=== PATIENT | female | born 1975 | race Caucasian/White ===

== ENCOUNTER 2019-04-26 11:17 | Emergency (ER) | payer BC, MEDICAID ==
--- NOTE | 2019-04-26 11:28 | EDM.PDOC ---
ED HPI GENERAL MEDICAL PROBLEM - General Chief Complaint: Lower Extremity Injury/Pain Stated Complaint: Right ankle pain and back pain Time Seen by Provider: 04/26/19 11:25 Source of Information: Reports: Patient, Old Records ([facility] [place] chart/EMR) History Limitations: Reports: No Limitations - History of Present Illness INITIAL COMMENTS - FREE TEXT/NARRATIVE: The patient was driven to the emergency room via private automobile by her for evaluation of 8/10 right ankle/right foot, and 10/10 low back pain after she slipped off the curb coming back from [place], [place] yesterday evening at an unknown time.. She has not injured these areas in the past. Note that the patient did take 1500 mg of Tylenol at 8 AM this morning with no improvement of her symptoms. Minor fall with a twisting injury of her right foot and ankle falling on her extended palms with a probable low back sprain and twisting injury. No history of head injury, change in mental status, visual changes, loss of consciousness, seizure activity, paresthesias, neurological deficits, or other complaints or injuries. The patient denies any chest pain/ pressure, heart flutter, dizziness, orthostasis, orthopnea, diaphoresis, paresthesias, recent decreased exercise tolerance, or any other anginal-type symptoms. No recent history of abdominal pain, heartburn, nausea, diarrhea, melena, gross hematochezia, or any food intolerance, including fatty foods, etc.. The patient also denies any recent fever, cough, wheezing, dyspnea, etc.. Onset: Sudden Onset Date: 04/25/19 Duration: Constant, Getting Worse Location: Reports: Back, Lower Extremity, Right. Denies: Head, Face, Neck, Chest, Abdomen, Pelvis, Upper Extremity, Left, Upper Extremity, Right, Lower Extremity, Left, Radiates to Quality: Reports: Stabbing, Throbbing Severity: Severe Improves with: Reports: Rest Worsens with: Reports: Movement Context: Reports: Trauma (As above) Associated Symptoms: Denies: Confusion, Chest Pain, Cough, Diaphoresis, Fever/ Chills, Malaise, Nausea/Vomiting, Shortness of Breath, Syncope, Weakness Treatments INSTALLATION DRAFTER: Reports: Acetaminophen Right Ankle Pain Score (Numeric/FACES): 8 Left Lower Back Pain Score (Numeric/FACES): 10 - Related Data Allergies Allergy/AdvReac Type Severity Reaction Status Date / Time aspirin Allergy Anaphylactic Verified 04/26/19 11:19 Shock Home Meds: Home Meds Cyclobenzaprine [Flexeril] 10 mg PO TID PRN #30 tab 04/26/19 [Rx] Past Medical History HEENT History: Reports: Otitis Media Gastrointestinal History: Reports: Hemorrhoids Musculoskeletal History: Reports: Arthritis, Back Pain, Chronic, Osteoarthritis - Past Surgical History GI Surgical History: Reports: Appendectomy Female Surgical History: Reports: Tubal Ligation - Past Imaging History Past Imaging History: Reports: Mammogram (Last on 06/28/14), MRI (Left wrist on 08/06/16.), Ultrasound (Soft Tissue ultrasound of the cervical region on 01/01/14 ) - History Comment History Comment: 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 Social & Family History - Tobacco Use Smoking Status *Q: Former Smoker Tobacco Use Within Last Twelve Months: No Years of Tobacco use: 19 Packs/Tins Daily: 0.5 Packs/Tins Daily Comment: Smoked between ages 15 and 34. 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 ED EXAM, GENERAL - Physical Exam Exam: See Below Exam Limited By: No Limitations General Appearance: Alert, WD/WN, No Apparent Distress, Anxious (Mild) Head: Atraumatic, Normocephalic. No: Facial Swelling, Facial Tenderness, Sinus Tenderness Neck: Normal Inspection, Supple, Non-Tender, Full Range of Motion. No: Lymphadenopathy (L), Lymphadenopathy (R), Thyromegaly Respiratory/Chest: No Respiratory Distress, Lungs Clear, Normal Breath Sounds, No Accessory Muscle Use, Chest Non-Tender. No: Pleural Rub, Retractions Cardiovascular: Normal Peripheral Pulses, Regular Rate, Rhythm, No Edema, No Gallop, No JVD, No Murmur, No Rub. No: Gallop/S3, Gallop/S4, Friction Rub Peripheral Pulses: 2+: Radial (L), Radial (R), Dorsalis Pedis (L), Dorsalis Pedis (R) GI/Abdominal: Normal Bowel Sounds, Soft, Non-Tender, No Organomegaly, No Distention, No Abnormal Bruit, No Mass, Pelvis Stable. No: Guarding (Female) Exam: Deferred Rectal (Female) Exam: Deferred Back Exam: Decreased Range of Motion (Secondary to muscle spasms), Muscle Spasm (Moderate palpation pain over the mid to lower left lumbar region with secondary spasms. No ecchymosis, crepitation, deformity, swelling, etc.). No: CVA Tenderness (L), CVA Tenderness (R) Extremities: No Pedal Edema, Joint Swelling (Mild mid dorsal right foot swelling with minimal ecchymosis but no crepitation, deformity, etc. with moderate localized palpation pain. No effusion of the right ankle with no joint instability including negative anterior drawers. Decreased range of motion secondary to pain.), Limited Range of Motion (As above). No: Merle's Sign, Increased Warmth Neurological: Alert, Oriented, CN II-XII Intact, Normal Cognition, Normal Gait, No Motor/Sensory Deficits Psychiatric: Anxious (Mild). No: Depressed Mood Skin Exam: Ecchymosis (As above). No: Diaphoretic, Lymphangitis, Wound/Incision Lymphatic: No Adenopathy ED TRAUMA EXTREMITY PROCEDURES - Splinting Right Lower Extremity Splint Site: Right ankle Pre-Procedure NV Status: Normal Post-Procedure NV Status: Normal Splint Material: Air Splint (Air ankle splint), Other (Secured with 4 inch Rito wrap) Splint Design: Stirrup Applied & Form Fitted By: Nurse Provider Post-Splint Application NV Check: NV Status Normal, Good Position Complications: No Course - Vital Signs Last Recorded V/S: Last Vital Signs Temp 36.8 C 04/26/19 12:27 Pulse 71 04/26/19 12:27 Resp 14 04/26/19 12:27 BP 95/63 04/26/19 12:27 Pulse Ox 94 L 04/26/19 12:27 Vital Signs - 24 hr 04/26/19 12:27 Temperature [ 36.8 C Temporal] Pulse, 71 Peripheral [ Right Pulse Oximetry] Respiratory 14 Rate Blood Pressure 95/63 [Left Upper Arm ] O2 Sat by Pulse 94 L Oximetry - Orders/Labs/Meds Orders: Active Orders 24 hr Category Date Time Status Peripheral IV Care [RC] . DIRECTED Care 04/26/19 12:07 Active Ankle Min 3V Rt [CR] Stat Exams 04/26/19 11:32 Taken Foot Comp Min 3V Rt [CR] Stat Exams 04/26/19 11:32 Taken Lumbar Spine 2 or 3V [CR] Stat Exams 04/26/19 11:33 Taken Sodium Chloride 0.9% [Saline Flush] Med 04/26/19 12:07 Active 10 ml FLUSH ASDIRECTED PRN Durable Medical Equipment for Discharge [DME for Oth 04/26/19 13:03 Ordered Discharge] [COMM] Routine Durable Medical Equipment for Discharge [DME for Oth 04/26/19 13:04 Ordered Discharge] [COMM] Routine Durable Medical Equipment for Discharge [DME for Oth 04/26/19 13:04 Ordered Discharge] [COMM] Routine Obtain Past Medical Record [OM.PC] Routine Oth 04/26/19 11:32 Active Peripheral IV Insertion Adult [OM.PC] Routine Oth 04/26/19 12:07 Ordered Medication Orders Sodium Chloride (Saline Flush) 10 ml FLUSH ASDIRECTED PRN PRN Reason: Keep Vein Open Last Admin: 04/26/19 12:44 Dose: 10 ml Labs: None Meds: Medications Generic Name Dose Route Start Last Admin Trade Name Freq PRN Reason Stop Dose Admin Sodium Chloride 10 ml 04/26/19 12:07 04/26/19 12:44 Saline Flush FLUSH 10 ml ASDIRECTED PRN Administration Keep Vein Open Discontinued Medications Generic Name Dose Route Start Last Admin Trade Name Freq PRN Reason Stop Dose Admin Ketorolac Tromethamine 30 mg 04/26/19 12:08 04/26/19 12:10 Toradol IVPUSH 04/26/19 12:09 30 mg ONETIME ONE Administration Lorazepam 1 mg 04/26/19 12:08 04/26/19 12:15 Ativan IVPUSH 04/26/19 12:09 1 mg ONETIME ONE Administration - Radiology Interpretation Free Text/Narrative:: X-rays of the lumbar spine, 3 views, show evidence of moderate osteoarthritic changes particularly in the lower thoracic region with mild decreased lordosis in the lumbar area but no acute fracture, dislocation, etc. X-rays of the right ankle, 3 views, and right foot, 3 views, shows evidence of a possible avulsion fracture over the lateral intraosseous region with probable questionable artifact of the proximal fifth metatarsal. Moderate osteoarthritic changes with no evidence of other fracture, dislocation, etc.. Ankle mortise is intact. Departure - Departure Time of Disposition: 13:30 Disposition: Home, Self-Care 01 Condition: Good Clinical Impression: Sprain Osteoarthritis Qualifiers: Osteoarthritis location: multiple joints Osteoarthritis type: primary Qualified Code(s): M15.0 - Primary generalized (osteo)arthritis Low back pain Qualifiers: Chronicity: acute Back pain laterality: left Sciatica presence: without sciatica Qualified Code(s): M54.5 - Low back pain - Discharge Information *PRESCRIPTION DRUG MONITORING PROGRAM REVIEWED*: Not Applicable *COPY OF PRESCRIPTION DRUG MONITORING REPORT IN PATIENT KATRIN: Not Applicable Prescriptions: Cyclobenzaprine [Flexeril] 10 mg PO TID PRN #30 tab PRN Reason: Spasms Instructions: Muscle Strain, [id number], Chronic Back Pain, [id number] Referrals: PCP,Unknown [Primary Care Provider] - Forms: ED Department Discharge Additional Instructions: 1. Followup with your regular provider in 7-10 days as directed. Bring these discharge instructions with you to that visit. X-rays may be repeated at that time depending on her symptoms. 2. Tylenol 650 mg by mouth every 4 hours and/or OTC ibuprofen 2-3 tabs by mouth every 6 hours with food as directed./needed. You may stagger these medications for 48-72 hours only, which essentially means that you are receiving a pain medication about every 2 hours. Next dose of ibuprofen in 6 hours secondary to medications given in the emergency room 3. BenGay or equivalent, heating pad, and/or ice packs as directed. 4. Use air ankle splint, Rito wrap, and crutches as directed with limited weightbearing until symptoms improved and/or as directed by your regular provider. 5. Sedation precautions with no driving, etc. for 18 hours because of emergency room medications. 6. Leg elevation as discussed. 7. Immediately after this visit verify that your cellular telephone's voicemail has been activated and is empty. Also verify that your home telephone 's answering machine is operating properly and has space to receive messages. Note that it is sometimes necessary for us to be able to contact you at a later date to discuss your medical care. 8. Please remember that we are ALWAYS here for you and want to answer any questions you may have. Feel free to call the hospital any time and we call you back MICHAEL. 9. Sedation, dry mouth, etc. precautions with Flexeril as discussed - Problem List & Annotations (1) Low back pain SNOMED Code(s): 172515423 Code(s): M54.5 - LOW BACK PAIN Status: Acute Priority: High Current Visit: Yes Onset Date: 04/25/19 Annotation/Comment:: Aggressive pain management as above with overall excellent results prior to patient's discharge. Activity restrictions, symptomatic therapy, etc. discussed as per discharge instructions. Mild anxiety component secondary to patient's discomfort with IV Ativan given as a muscle relaxant. Close follow-up by regular provider as per discharge instructions. She denies previous history of chronic low back pain although some evidence of this from review of previous medical records. She has tolerated Flexeril in the past. Qualifiers: Chronicity: acute Back pain laterality: left Sciatica presence: without sciatica Qualified Code(s): M54.5 - Low back pain (2) Osteoarthritis SNOMED Code(s): 031906367 Code(s): M19.90 - UNSPECIFIED OSTEOARTHRITIS, UNSPECIFIED SITE Status: Chronic Priority: Medium Current Visit: Yes Annotation/Comment:: Osteoarthritic changes by x-rays as above. Symptomatic relief as per discharge instructions. Qualifiers: Osteoarthritis location: multiple joints Osteoarthritis type: primary Qualified Code(s): M15.0 - Primary generalized (osteo)arthritis (3) Sprain SNOMED Code(s): 920758720 Code(s): T14.8XXA - OTHER INJURY OF UNSPECIFIED BODY REGION, INITIAL ENCOUNTER Status: Acute Priority: High Current Visit: Yes Onset Date: Annotation/Comment:: Excellent pain relief as above. Probable muscle sprains, including low back and foot and ankle sprains with possibility of mild avulsion fracture of the right foot as above. The 5th. metatarsal x-ray findings are likely artifactual in nature. Patient placed in an Rito wrap and air ankle splint by the nurse with crutches provided and activity instructions, etc. discussed. - Problem List Review Problem List Initiated/Reviewed/Updated: Yes - My Orders Last 24 Hours: My Active Orders 04/26/19 11:32 Ankle Min 3V Rt [CR] Stat Foot Comp Min 3V Rt [CR] Stat Obtain Past Medical Record [OM.PC] Routine 04/26/19 11:33 Lumbar Spine 2 or 3V [CR] Stat 04/26/19 12:07 Peripheral IV Care [RC] . DIRECTED Sodium Chloride 0.9% [Saline Flush] 10 ml FLUSH ASDIRECTED PRN Peripheral IV Insertion Adult [OM.PC] Routine 04/26/19 13:03 Durable Medical Equipment for Discharge [DME for Discharge] [COMM] Routine 04/26/19 13:04 Durable Medical Equipment for Discharge [DME for Discharge] [COMM] Routine Durable Medical Equipment for Discharge [DME for Discharge] [COMM] Routine - Assessment/Plan Last 24 Hours: My Active Orders 04/26/19 11:32 Ankle Min 3V Rt [CR] Stat Foot Comp Min 3V Rt [CR] Stat Obtain Past Medical Record [OM.PC] Routine 04/26/19 11:33 Lumbar Spine 2 or 3V [CR] Stat 04/26/19 12:07 Peripheral IV Care [RC] . DIRECTED Sodium Chloride 0.9% [Saline Flush] 10 ml FLUSH ASDIRECTED PRN Peripheral IV Insertion Adult [OM.PC] Routine 04/26/19 13:03 Durable Medical Equipment for Discharge [DME for Discharge] [COMM] Routine 04/26/19 13:04 Durable Medical Equipment for Discharge [DME for Discharge] [COMM] Routine Durable Medical Equipment for Discharge [DME for Discharge] [COMM] Routine Assessment:: As above Plan: As above. Extensive precautions were given to the patient, who is in agreement with the treatment plan. See Patient Instructions for further treatment and plan.
[2019-04-26] MEDS ORDERED: Sodium Chloride 0.9% 10 ML Syringe FLUSH PRN (12:07)
[2019-04-26] MEDS ORDERED: LORazepam 2 MG/ML SDV IVPUSH ONE (12:08)
[2019-04-26] MEDS ORDERED: Ketorolac 30 MG/ML SDV IVPUSH ONE (12:08)
== END 2019-04-26 13:30 | disposition home or self-care (01) ==
LOC: LL.ED 11:17
DX: S93.401A Sprain of unspecified ligament of right ankle, initial encounter (principal); S90.31XA Contusion of right foot, initial encounter; M15.0 Primary generalized (osteo)arthritis; M54.5 Low back pain; M62.830 Muscle spasm of back; Z88.6 Allergy status to analgesic agent; Z79.899 Other long term (current) drug therapy; Z87.891 Personal history of nicotine dependence; X50.9XXA Other and unspecified overexertion or strenuous movements or postures, initial encounter
CPT/HCPCS: 72100; 73610; 73630; 96374; 96375; 99283; J1885; J2060